=== PATIENT | female | born 1955 | race Caucasian/White ===

== ENCOUNTER 2023-06-23 09:40 | Emergency (ER) | payer OTHER ==
[~2023-06-23] VITALS: Ht 160 cm; Wt 90.7 kg
== END 2023-06-23 19:22 | disposition home or self-care (01) ==
LOC: ER 09:40
DX: M54.50 Low back pain, unspecified (principal); I10 Essential (primary) hypertension; K29.70 Gastritis, unspecified, without bleeding; F41.8 Other specified anxiety disorders; F32.9 Major depressive disorder, single episode, unspecified; M62.830 Muscle spasm of back
CPT/HCPCS: 72100; 96372; 99284; J1885; J2360

== ENCOUNTER 2024-11-05 14:49 | Emergency (ER) | payer OTHER ==
[~2024-11-05] VITALS: Ht 154.9 cm; Wt 61.7 kg
[2024-11-05] MEDS ORDERED: ZESTRIL2.5 MG (15:06)
[2024-11-05] MEDS ORDERED: CLONAZEPAM0.125 MG (15:06)
[2024-11-05] MEDS ORDERED: EZALLOR SPRINKLE5 MG (15:07)
[2024-11-05] MEDS ORDERED: FAMOTIDINE/PF 20 MG in 0.9 % SODIUM CHLORIDE 8 ML IV PUSH STA (16:12)
[2024-11-05] MEDS ORDERED: KETOROLAC TROMETHAMINE 15 MG VIAL IV ONE (16:15)
[2024-11-05] MEDS ORDERED: DIPHENOXYLATE HCL/ATROPINE 1 UDTAB TABLET PO ONE (16:15)
[2024-11-05] MEDS ORDERED: ONDANSETRON HCL 2 MG/ML VIAL IV ONE (16:15)
[2024-11-05] MEDS ORDERED: 0.9 % SODIUM CHLORIDE 1,000 ML IV SCH (16:15)
[2024-11-05] MEDS ORDERED: FAMOTIDINE/PF 20 MG/2 ML VIAL ONE (16:46)
[2024-11-05] MEDS ORDERED: KETOROLAC TROMETHAMINE 30 MG VIAL ONE (16:46)
[2024-11-05 17:40] LABS: HEMATOCRIT 42.4 % (36.0-45.00); HEMOGLOBIN 14.4 g/dL (12.0-15.00); MEAN CELL VOLUME 98.8 fL (80.00-100.00); MEAN CORPUSCULAR HEMOGLOBIN 33.5 pg (27.00-32.0); MEAN CORPUSCULAR HGB CONC 33.8 g/dl (32.0-36.0); PLATELET COUNT 319 K/uL (150-450); RED BLOOD COUNT 4.29 M/uL (4.00-6.00); RED CELL DISTRIBUTION WIDTH 13.4 % (11.5-14.5)
[2024-11-05 18:04] LABS: ALBUMIN 3.9 gm/dL (3.4-5.0); BILIRUBIN TOTAL 0.47 mg/dL (0.3-1.2); CALCIUM 9.4 mg/dL (8.5-10.1); CREATININE SERUM 0.71 mg/dL (0.55-1.02); GFR 82.11; GLOBULINA 4.4 G/DL (2.4-3.5); POTASSIUM 3.81 mEq/L (3.5-5.1); TOTAL PROTEIN 8.3 gm/dL (6.4-8.2)
[2024-11-05] MEDS ORDERED: ZOFRAN8 MG PO (19:39)
[2024-11-05] MEDS ORDERED: PEPCID AC20 MG PO (19:39)
== END 2024-11-05 20:24 | disposition home or self-care (01) ==
LOC: ER 14:49
PROVIDERS: General Practice
DX: K52.9 Noninfective gastroenteritis and colitis, unspecified (principal); R10.9 Unspecified abdominal pain; I10 Essential (primary) hypertension; E11.9 Type 2 diabetes mellitus without complications; Z91.041 Radiographic dye allergy status
CPT/HCPCS: 36415; 74176; 96365; 96366; 99284; J1885; J2405; J3490; J7030